=== PATIENT | female | born 1985 | race Asian ===

== ENCOUNTER 2017-12-21 08:15 | Inpatient (IN) | payer SELFPAY ==
[~2017-12-21] VITALS: Ht 167.6 cm; Wt 68.5 kg
[2017-12-21] MEDS ORDERED: PREN-380 PO (08:38)
[2017-12-21] MEDS ORDERED: OXYTOCIN 20 UNITS in LACTATED RINGERS 1,000 ML IV SCH (08:38)
[2017-12-21] MEDS ORDERED: NALBUPHINE 10 MG/ML AMP IVP PRN (08:40)
[2017-12-21] MEDS ORDERED: METHYLERGONOVINE 0.2 MG/ML AMP IM PRN (08:40)
[2017-12-21] MEDS ORDERED: PROMETHAZINE 25 MG/ML VIAL IVP PRN (08:40)
[2017-12-21] MEDS ORDERED: OXYTOCIN 10 UNITS/ML VIAL IM SCH (08:40)
[2017-12-21 09:43] VITALS: BP 118/72
[2017-12-21 10:54] LABS: BASOPHILS % (AUTO) 0.3 % (0.0-2.0); EOSINOPHILS # (AUTO) 0.1 K/uL (0-0.4); EOSINOPHILS % (AUTO) 0.9 % (0.0-4.0); HEMOGLOBIN 12.7 g/dL (12.0-16.0); LYMPHOCYTES # (AUTO) 1.2 K/uL (2.5-16.5); LYMPHOCYTES % (AUTO) 9.7 % (20.5-51.1); MEAN CORPUSCULAR HEMOGLOBIN 31 pg (27-31); MEAN CORPUSCULAR HGB CONC 33 g/dL (33-37); MEAN CORPUSCULAR VOLUME 92.1 fL (80-94); MONOCYTES # (AUTO) 0.8 K/uL (0.8-1.0); NEUTROPHILS # (AUTO) 9.8 K/uL (1.8-7.7); NEUTROPHILS % (AUTO) 82.1 % (42.2-75.2); PLATELET COUNT (AUTO) 208 K/uL (140-450); RED BLOOD CELL COUNT(AUTO) 4.13 MIL/uL (4.20-5.40); RED CELL DISTRIBUTION WIDTH 14.2 % (11.6-13.7)
[2017-12-21 11:15] LABS: ALBUMIN 2.6 g/dL (3.4-5.0); ANION GAP 12.8 (8-16); CARBON DIOXIDE 26.3 mmol/L (21-32); CREATININE 0.7 mg/dL (0.6-1.3); POTASSIUM 4.1 mmol/L (3.5-5.1); TOTAL BILIRUBIN 0.4 mg/dL (0.0-1.0)
[2017-12-21 11:41] LABS: BILIRUBIN,URINE NEGATIVE (NEGATIVE); BLOOD, URINE 3+ (NEGATIVE); COLOR,URINE YELLOW (YELLOW); LEUKOCYTE ESTERASE ,URINE NEGATIVE (NEGATIVE); NITRITE, URINE NEGATIVE (NEGATIVE); UGLUCOSE NEGATIVE (NEGATIVE)
[2017-12-21 11:48] LABS: APPEARANCE,URINE SLIGHTLY HAZY (CLEAR)
[2017-12-21 11:49] LABS: CALCIUM OXALATE CRYSTALS,UR 0-10 /HPF (None Seen); RBC,URINE 3-10 (FEW) /HPF (0-5); WBC,URINE 0-5 (RARE) /HPF (0-5)
[2017-12-21] MEDS ORDERED: BUPIVACAINE 0.125%/NS PREMIX 250 ML EPI SCH (14:25)
[2017-12-21] MEDS: LACTATED RINGERS 1,000 ML IV SCH (15:58)
[2017-12-22] MEDS: LACTATED RINGERS 1,000 ML IV SCH (00:13)
[2017-12-22] MEDS ORDERED: AMPICILLIN 2,000 MG VIAL ONE (03:58)
[2017-12-22] MEDS ORDERED: OXYTOCIN 10 UNITS/ML VIAL ONE (04:25)
[2017-12-22] MEDS ORDERED: AMPICILLIN 2,000 MG in NACL 0.9% 100 ML IV SCH (05:00)
--- NOTE | 2017-12-22 08:40 | NUR ---
PATIENT HAS BEEN SCREENED AND CATEGORIZED LOW NUTRITION RISK. PATIENT WILL BE SEEN WITHIN 7 DAYS OF ADMISSION. 12/27/[address]
[2017-12-22] MEDS ORDERED: IBUPROFEN 800 MG TAB PO PRN (11:20)
[2017-12-22] MEDS ORDERED: BENZOCAINE/MENTHOL 20%-0.5% 60 GM CAN TP PRN (11:20)
[2017-12-22] MEDS ORDERED: oxyCODONE/APAP 5/325 MG 1 TAB TAB PO PRN (11:20)
[2017-12-22] MEDS ORDERED: METHYLERGONOVINE 0.2 MG/ML AMP IM PRN (11:20)
[2017-12-22] MEDS ORDERED: TEMAZEPAM 15 MG CAP PO PRN (11:20)
[2017-12-22] MEDS ORDERED: MEASLES, MUMPS, AND RUBELLA 1 VIAL SQVAC PRN (11:20)
[2017-12-22] MEDS: HYDROcodone/APAP 5/325 MG 1 TAB TAB PO PRN ×2 (13:03→18:31)
[2017-12-22] MEDS ORDERED: BETHANECHOL 25 MG TAB PO PRN (14:50)
[2017-12-22] MEDS ORDERED: BETHANECHOL 25 MG TAB ONE (15:03)
[2017-12-22] MEDS ORDERED: DOCUSATE SOD/SENNA 50/8.6 MG 1 TAB PO SCH (21:00)
[2017-12-22] MEDS: BETHANECHOL 25 MG TAB PO PRN (21:22)
[2017-12-23] MEDS: BETHANECHOL 25 MG TAB PO PRN ×4 (03:18→21:07)
[2017-12-23] MEDS: HYDROcodone/APAP 5/325 MG 1 TAB TAB PO PRN (04:40)
[2017-12-23 06:04] LABS: HEMATOCRIT 33.6 % (36-48); HEMOGLOBIN 11.4 g/dL (12.0-16.0)
== END 2017-12-23 23:27 | disposition home or self-care (01) | DRG 775 ==
LOC: EDBD → MLD 08:15 → MFCC 12-22 11:40
PROVIDERS: ADMIT Obstetrics & Gynecology; ATTEND Obstetrics & Gynecology
PROC: 10E0XZZ Delivery of Products of Conception, External Approach (ICD-10-PCS; principal; 2017-12-21)
PROC: 3E033VJ Introduction of Other Hormone into Peripheral Vein, Percutaneous Approach (ICD-10-PCS; 2017-12-21)
PROC: 3E0R3BZ Introduction of Anesthetic Agent into Spinal Canal, Percutaneous Approach (ICD-10-PCS; 2017-12-21)
PROC: 00HU33Z Insertion of Infusion Device into Spinal Canal, Percutaneous Approach (ICD-10-PCS; 2017-12-21)
DX: O80 Encounter for full-term uncomplicated delivery (principal); Z37.0 Single live birth; Z3A.39 39 weeks gestation of pregnancy
CPT/HCPCS: 36415; 51702; 80053; 81001; 85018; 85025; 86592; 86886; 86900; 86901; C1758; J0290; J2590; J3490; J7120